=== PATIENT | female | born 1965 | race Caucasian/White ===

== ENCOUNTER → 2021-04-13 06:45 | Outpatient (CLI) | payer SELFPAY ==
[2021-04-13 20:36] LABS: SARS-CoV-2 RNA PCR Negative
== END ==
PROVIDERS: PCP Family Medicine; Visit Provider Family Medicine
DX: Z20.822 Contact with and (suspected) exposure to COVID-19 (principal)
CPT/HCPCS: C9803; U0003; U0005

== ENCOUNTER 2021-11-05 03:29 | Day surgery (SDC) | payer OTHER, SELFPAY ==
[2021-11-01 16:09] VITALS: BMI 34.1
[2021-11-05 09:11] VITALS: BP 158/98; PULSE 66; RESP 18; TEMP 36.6; O2SAT 100
[2021-11-05] MEDS: LACTATED RINGERS 1,000 ML 150 ML IV CONT (09:20)
--- NOTE | 2021-11-05 09:25 | WPDANESEPPF ---
Anes - Initial Pre Proc Eval Procedure: Operation Date: 11/05/21 10:00 Proposed Procedures p Screening Colonoscopy - Elias Carcamo MD Date/Time: 11/05/21 09:25 Surgeon: Elias Carcamo MD Pre Op Diagnosis: neoplasm screening Patient Data Age: 56 Gender: F Height: 1.68 m Weight: 97.7 kg Last Vital Signs Temp 36.6 C 11/05/21 09:11 Pulse 66 11/05/21 09:11 Resp 18 11/05/21 09:11 BP 158/98 H 11/05/21 09:11 Pulse Ox 100 11/05/21 09:11 Allergies Allergy/AdvReac Type Severity Reaction Status Date / Time Penicillins Allergy Severe Swelling Verified 11/05/21 09:09 of Lip/Tongue/Throat Sulfa (Sulfonamide Allergy Intermediate Hives Verified 11/05/21 09:09 Antibiotics) Home Medications Medication Instructions Recorded Confirmed Type atorvastatin 20 mg tablet 20 mg PO QPM #90 tablet 09/30/21 11/05/21 Rx hydrochlorothiazide 25 mg tablet See Rx Instructions .ROUTE 09/30/21 11/05/21 Rx .COMPLEX #90 tablet metoprolol tartrate 100 mg tablet 100 mg PO Q12H #180 tablet 09/30/21 11/05/21 Rx quinapril 40 mg tablet 40 mg PO BID #180 tablet 09/30/21 11/05/21 Rx cholecalciferol (vitamin D3) 50 mcg PO HS 11/01/21 11/05/21 History [Vitamin D3] esomeprazole magnesium [Nexium] 20 mg PO DAILY 11/01/21 11/05/21 History ibuprofen 400 mg PO QAM 11/01/21 11/05/21 History Patient hx anesthesia problems: none Family hx anesthesia problems: none Results Review: All pre-operative results and documents have been reviewed as part of the pre-operative evaluation. [facility] Past Medical History Medical History Anxiety Benign hypertension BMI 35.0-35.9,adult Breast cancer screening Colon cancer screening Fatigue Hemochromatosis carrier Hereditary hemochromatosis H63D/H63D Hypertension Post-menopausal age 40 Pre-diabetes Vitamin D deficiency Family History Family History Father Hypertension Cerebrovascular accident Carcinoma of colon Diabetes mellitus Mother Depression Acute myocardial infarction Social History Social History Years smoked: 20 Smoking status: Current some day smoker Tobacco type: cigarettes Second hand tobacco smoke exposure: No Additional smoking assessment comments: SOCIAL WHEN DRINKING ONLY Alcohol intake: current Drinks per week: 8 Alcohol use details: consumes 5 beers or glasses of wine weekly Substance use: never Substance use type: does not use Living arrangements: with family Gender identity (if verbalized by the patient): Female Spiritual care concerns: No Anes - Eval Final PreProcedure Day of Procedure 11/05/21 09:25 Patient weight: obese Heart: regular rate and rhythm Lungs: clear to auscultation Airway: Mallampati scale class II Neurological: alert and oriented Last oral intake: >/= 8 hours ASA classification: III Emergent: no Anesthetic plan: proceed Anesthesia type and monitoring: general GIVS and standard monitoring Results Review: All pre-operative results and documents have been reviewed as part of the pre-operative evaluation. Informed Consent: The patient's anesthetic plan and its attendant risks and benefits were discussed with the patient/family/POA. Questions were solicited and answers provided to the satisfaction of the patient/family/POA.
--- NOTE | 2021-11-05 09:44 | PM.HPGS ---
History of Present Illness History of Present Illness Consent: Risks, benefits, and alternatives have been discussed and questions answered. Patient agrees to proceed with procedure. Chief complaint: neoplasm screening Narrative: Monet Oh is a 56 year old female here for first screening colonoscopy, father had colon cancer Review of Systems Constitutional: Constitutional: Denies headache(s) and Denies weakness Eyes: Eyes: Denies blurry vision ENT: Reports Normal hearing present, Denies headache(s) and Denies neck pain Cardiovascular: Cardiovascular: Denies chest pain and Denies dyspnea Respiratory: Respiratory: Denies dyspnea Gastrointestinal: Gastrointestinal: Reports no additional gastrointestinal complaints Genitourinary: Genitourinary: Denies dysuria Musculoskeletal: Musculoskeletal: Denies neck pain Integumentary/Breasts: Skin/Breast: Denies dry skin Neurologic: Reports Normal hearing present, Denies headache(s) and Denies weakness Psychiatric: Psychiatric: Denies anxiety Endocrine: Endocrine: Denies change in body appearance Hematologic/Lymphatic: Hematologic/Lymphatic: Denies easy bleeding Allergic/Immunologic: Allergic/Immunologic: Denies urticaria PMFSH Past Medical History Medical History (Updated 11/05/21 @ 09:44 by Elias Carcamo MD) Anxiety Benign hypertension BMI 35.0-35.9,adult Breast cancer screening Colon cancer screening Family history of colon cancer in father Fatigue Hemochromatosis carrier Hereditary hemochromatosis H63D/H63D Hypertension Post-menopausal age 40 Pre-diabetes Vitamin D deficiency Family History Family History Father Hypertension Cerebrovascular accident Carcinoma of colon Diabetes mellitus Mother Depression Acute myocardial infarction Social History Social History Years smoked: 20 Smoking status: Current some day smoker Tobacco type: cigarettes Second hand tobacco smoke exposure: No Additional smoking assessment comments: SOCIAL WHEN DRINKING ONLY Alcohol intake: current Drinks per week: 8 Alcohol use details: consumes 5 beers or glasses of wine weekly Substance use: never Substance use type: does not use Living arrangements: with family Gender identity (if verbalized by the patient): Female Spiritual care concerns: No Meds Home Medications and Allergies Home Medications Medication Instructions Recorded Confirmed Type atorvastatin 20 mg tablet 20 mg PO QPM #90 tablet 09/30/21 11/05/21 Rx hydrochlorothiazide 25 mg tablet See Rx Instructions .ROUTE 09/30/21 11/05/21 Rx .COMPLEX #90 tablet metoprolol tartrate 100 mg tablet 100 mg PO Q12H #180 tablet 09/30/21 11/05/21 Rx quinapril 40 mg tablet 40 mg PO BID #180 tablet 09/30/21 11/05/21 Rx cholecalciferol (vitamin D3) 50 mcg PO HS 11/01/21 11/05/21 History [Vitamin D3] esomeprazole magnesium [Nexium] 20 mg PO DAILY 11/01/21 11/05/21 History ibuprofen 400 mg PO QAM 11/01/21 11/05/21 History Allergies Allergy/AdvReac Type Severity Reaction Status Date / Time Penicillins Allergy Severe Swelling Verified 11/05/21 09:09 of Lip/Tongue/Throat Sulfa (Sulfonamide Allergy Intermediate Hives Verified 11/05/21 09:09 Antibiotics) Vital Signs Vital Signs - 24 hr 11/05/21 09:11 Temperature 97.9 F Pulse Rate 66 Respiratory Rate 18 Blood Pressure 158/98 H Pulse Oximetry 100 Exam Const: General: comfortable and no acute distress HENMT: General nose exam: Normal nares present Eyes: General: appearance normal, both eyes and all related structures Neck: Neck: no JVD Resp: Auscultation: clear to auscultation bilaterally Cardio: Rate: regular rate Rhythm: regular rhythm GI: Inspection: non-distended GI Palp: Yes Soft to palpation Skin: General skin exam: normal color Neuro: General: g
[2021-11-05 10:07] VITALS: BP 145/90; PULSE 65; RESP 18; O2SAT 97
[2021-11-05 10:17] VITALS: BP 155/95; PULSE 58; RESP 18; O2SAT 95
[2021-11-05 10:26] VITALS: BP 159/105; PULSE 58; RESP 18; O2SAT 96
== END 2021-11-05 10:42 | disposition home or self-care (01) ==
PROVIDERS: PCP Family Medicine; Visit Provider Internal Medicine Gastroenterology
PROC: 0DJD8ZZ Inspection of Lower Intestinal Tract, Via Natural or Artificial Opening Endoscopic (ICD-10-PCS; CPT 45378; principal; 2021-11-05 10:00)
DX: Z12.11 Encounter for screening for malignant neoplasm of colon (principal); D12.0 Benign neoplasm of cecum; K57.30 Diverticulosis of large intestine without perforation or abscess without bleeding; K64.8 Other hemorrhoids; Z80.0 Family history of malignant neoplasm of digestive organs; I10 Essential (primary) hypertension; E83.110 Hereditary hemochromatosis; R73.03 Prediabetes; F41.9 Anxiety disorder, unspecified; F17.210 Nicotine dependence, cigarettes, uncomplicated; E66.9 Obesity, unspecified; Z68.34 Body mass index [BMI] 34.0-34.9, adult
CPT/HCPCS: 45380; 88305; J2001; J2704; J7120